=== PATIENT | male | born 2000 | race Caucasian/White ===

== ENCOUNTER 2023-11-17 10:59 | Emergency (ER) | payer SELFPAY ==
[2023-11-17 10:59] VITALS: BP 151/89; PULSE 65; RESP 18; TEMP 36.4; O2SAT 99
--- NOTE | 2023-11-17 12:34 | EXP.UTC ---
Discharge Plan Disposition Patient Disposition: Home, Self-Care Condition: Good Prescriptions Prescriptions: New mupirocin 2 % ointment 1 applic topical TID Qty: 22 0RF Clinical Impressions Clinical Impression: Wood splinter in finger Discharge ED Provider: Valarie Painter [facility] General Stated complaint: possible splinter in right hand pinky finger Mode of Arrival: Ambulatory Source of Information: Patient Limitations: No Limitations Time Seen by Provider: 11/17/23 11:14 Description of Symptoms (Recalled from Triage Doc. by RN): PT REPORTS SPLINTER TO LEFT PINKY FINGER HEENT Symptoms (Recalled from RN notes): No Resp Symptoms (Recalled from RN notes): No Skin Symptoms (Recalled from RN notes): Yes MS Symptoms (Recalled from RN notes): No Functional Status (Recalled from RN notes): NA History of Present Illness Provider Complaint: Pt reports that he was rubbing his hand across the wood and got a splinter in his left pinky finger. He reports that he removed a large portion with needle nose plyers, however the wood broke leaving a piece of the splinter in his pinky. He reports that he tried several times to get the splinter out, but was unsuccessful. Related Data Previous Rx's Medication Instructions Recorded mupirocin 2 % topical ointment 1 applic topical TID #22 grams 11/17/23 Allergies Allergy/AdvReac Type Severity Reaction Status Date / Time No Known Drug Allergies Allergy Unknown -- Unverified 05/15/17 14:14 Worker's Comp Is this a Worker's Comp case?: No [facility] Disclaimer: The information contained in this section may have been updated after the patient was seen, as this information can be updated by other users. Social History Smoking Status: Never smoker alcohol intake: never current occupational status: employed Travel in the last 8 weeks: None ROS Obtained: Yes All systems reviewed & no additional complaints except as documented Constitutional Constitutional: Reports system reviewed and no additional complaints, except as documented Eyes Eyes: Reports system reviewed and no additional complaints, except as documented ENT Ears, Nose, Mouth, and Throat: Reports system reviewed and no additional complaints, except as documented Cardiovascular Cardiovascular: Reports system reviewed and no additional complaints, except as documented Respiratory Respiratory: Reports system reviewed and no additional complaints, except as documented Gastrointestinal Gastrointestingal: Reports system reviewed and no additional complaints, except as documented Genitourinary Male Genitourinary: Reports system reviewed and no additional complaints, except as documented Musculoskeletal Musculoskeletal: Reports system reviewed and no additional complaints, except as documented Integumentary/Breasts Skin/Breast: Reports system reviewed and no additional complaints, except as documented Comments: splinter in left pinky finger Neurologic Neurologic: Reports system reviewed and no additional complaints, except as documented Endocrine Endocrine: Reports system reviewed and no additional complaints, except as documented Hematologic/Lymphatic Henatologic/Lymphatic: Reports system reviewed and no additional complaints, except as documented Allergic/Immunologic Allergic/Immunologic: Reports system reviewed and no additional complaints, except as documented Physical Exam General General appearance: alert and in no apparent distress Head Head exam: atraumatic and normocephalic Eye Eye exam: Present normal appearance ENT ENT exam: Present normal exam and normal oropharynx Neck Neck exam: Present normal inspection and lymphadenopathy Chest Chest inspection: Present normal inspection and symmetric chest wall rise Respiratory Respiratory exam: Present normal lung sounds bilaterally Cardiovascular Cardiovascular exam: Present regular rate, normal rhythm and normal heart sounds Abdominal Exam Abdominal exam: Present soft Back Exam Back exam: Present normal inspection Neurological Exam Neurological exam: Present alert and oriented X3 Psychiatric Psychiatric exam: Present normal affect and normal mood Skin Skin exam: Present other Expanded Skin Exam Type of lesion: Present other Distribution: LUE Comment: left pinky with small open area where he previously tried to remove splinter. Lymphatic Lymphatic Findings: no adenopathy Medical Decision Making Сергей Inquiry Pt receiving controlled substance: No Сергей was queried for this patient: No Vital Signs: 11/17/23 10:59 Temperature 97.6 F Temperature Source Oral Pulse Rate [Radial] 65 Respiratory Rate 18 Blood Pressure [Left Arm] 151/89 H Blood Pressure Mean [Left Arm] 109 Blood Pressure Source [Left Arm] Automatic Cuff Blood Pressure Position [Left Arm] Sitting 02 Sat by Pulse Oximetry 99 Oxygen Delivery Method Room Air Procedures Miscellaneous Procedure Procedure Performed: used lidocaine cream to numb left pinky. Able to feel splinter, but unable to visualize. Wiped area with alcohol and used sterile needle to attempt to get splinter from finger. Was unsuccessful.
[2023-11-17 12:40] VITALS: BP 127/80; PULSE 65; RESP 18; TEMP 36.4; O2SAT 99
== END 2023-11-17 12:40 | disposition home or self-care (01) ==
PROVIDERS: Emergency Provider Nurse Practitioner Family; PCP Family Medicine
DX: S60.457A Superficial foreign body of left little finger, initial encounter (principal); W45.8XXA Other foreign body or object entering through skin, initial encounter
CPT/HCPCS: 99204; 99212; G0463